=== PATIENT | female | born 1990 | race Two or more races ===

== ENCOUNTER 2023-10-07 15:22 | Emergency (ER) | payer MEDICAID ==
[~2023-10-07] VITALS: Ht 160 cm; Wt 70.5 kg
[2023-10-07 15:23] VITALS: TEMP 98.2
[2023-10-07 15:44] LABS: APPEARANCE,URINE CLEAR (CLEAR); BILIRUBIN,URINE NEGATIVE (NEGATIVE); COLOR,URINE YELLOW (YELLOW); GLUCOSE, URINE (UA) NEGATIVE (NEGATIVE); KETONES,URINE NEGATIVE (NEGATIVE); LEUKOCYTE ESTERASE ,URINE SMALL (NEGATIVE); NITRATE,URINE NEGATIVE (NEGATIVE); OCCULT BLOOD,URINE MODERATE (NEGATIVE); PROTEIN,URINE 100-200,SEE CONFIRM mg/dL (NEGATIVE); SPECIFIC GRAVITIY, URINE 1.034 (1.003-1.030); UROBILINOGEN,URINE <=1.0 mg/dL (<=1.0)
[2023-10-07 15:56] LABS: BASOPHILS % (AUTO) 0.6 % (0.0-2.0); EOSINOPHILS % (AUTO) 6.4 % (1.0-6.0); HEMATOCRIT 31.6 % (36-46); HEMOGLOBIN 10.2 g/dL (12.0-16.0); LYMPHOCYTES # (AUTO) 2.9 K/uL (1.0-4.8); LYMPHOCYTES % (AUTO) 35.6 % (22.0-44.0); MEAN CORPUSCULAR HGB CONC 32.3 G/dL (31.0-37.0); MEAN CORPUSCULAR VOLUME 87 fL (80-100); MONOCYTES # (AUTO) 0.8 K/uL (0.1-1.0); MONOCYTES % (AUTO) 9.2 % (2.0-9.0); NEUTROPHILS % (AUTO) 48.2 % (40.0-70.0); PLATELET COUNT (AUTO) 474 K/uL (150-450); RED BLOOD CELL COUNT(AUTO) 3.64 MIL/uL (4.00-5.20); RED CELL DISTRIBUTION WIDTH 14.5 % (11.5-14.5); WHITE BLOOD COUNT (AUTO) 8.2 K/uL (4.5-11.0)
[2023-10-07 16:04] LABS: ANION GAP 10 mmol/L (8-16); CALCIUM, TOTAL 8.7 mg/dL (8.8-10.5); CARBON DIOXIDE 25 mmol/L (22-29); CHLORIDE 106 mmol/L (98-107); CREATININE 0.75 mg/dL (0.60-1.30); GLOMERULAR FILTR. RATE CALC > 60 mL/min (>60); GLUCOSE,RANDOM 94 mg/dL (70-110); POTASSIUM 4.1 mmol/L (3.5-5.1); SODIUM SERUM 141 mmol/L (136-145); UREA NITROGEN, BLOOD 7 mg/dL (7-18)
[2023-10-07 16:10] LABS: SULFOSALICYLIC ACID,URINE 3+ (Negative)
[2023-10-07 16:10] LABS: ALANINE AMINOTRANSFERASE 50 U/L (12-78); ALBUMIN 3.2 g/dL (3.4-5.0); ALKALINE PHOSPHATASE 102 U/L (46-116); ASPARTATE AMINOTRANSFERASE 33 U/L (15-37); BILIRUBIN,TOTAL 0.1 mg/dL (0.1-1.0); TOTAL PROTEIN, SERUM 7.4 g/dL (6.4-8.2)
[2023-10-07 16:13] LABS: BACTERIA,URINE Few /HPF (None Seen)
[2023-10-07 16:23] LABS: HCG,QUAL URINE NEGATIVE (NEGATIVE)
[2023-10-07] MEDS: SODIUM CHLORIDE 0.9% 1,000 ML IV ONE (16:49)
[2023-10-07] MEDS: ONDANSETRON HCL 4 MG/2 ML VIAL IVP ONE (16:50)
[2023-10-07] MEDS: HYDROmorphone HCL 2 MG/ML SYRINGE IVP ONE (17:49)
[2023-10-07 19:33] VITALS: BP 122/67; PULSE 83; RESP 17
[2023-10-07] MEDS ORDERED: CEPH-558 PO (19:44)
[2023-10-07] MEDS ORDERED: IBUP-1554 PO (19:44)
[2023-10-07] MEDS ORDERED: ONDA-104 PO (19:44)
[2023-10-07] MEDS ORDERED: HYDR-4723 PO (19:44)
[2023-10-07] MEDS: HYDROCODONE/ACETAMINOPHEN 5-325 MG TABLET PO ONE (20:16)
[2023-10-08] MEDS ORDERED: [UNRECOGNIZED DRUG - CODE] PO (23:36)
== END 2023-10-07 21:19 | disposition home or self-care (01) ==
LOC: EMS 15:22
DX: N20.9 Urinary calculus, unspecified (principal); J45.909 Unspecified asthma, uncomplicated; F31.9 Bipolar disorder, unspecified; M79.7 Fibromyalgia; G89.29 Other chronic pain; Z87.442 Personal history of urinary calculi; Z88.2 Allergy status to sulfonamides; Z88.8 Allergy status to other drugs, medicaments and biological substances
CPT/HCPCS: 99285; 74176; 96374; 96361; 96375; 80053; 81001; 84703; 85025; 36415; J1170; J2405; J7030; 81002

== ENCOUNTER 2023-10-08 15:52 | Emergency (ER) | payer MEDICAID ==
[~2023-10-08] VITALS: Ht 160 cm; Wt 84.1 kg
[~2023-10-08 15:52] MED LIST: CEPH-558 PO; HYDR-4723 PO; IBUP-1554 PO; ONDA-104 PO
[2023-10-08 15:56] VITALS: TEMP 97.8
[2023-10-08] MEDS: SODIUM CHLORIDE 0.9% 1,000 ML IV ONE (19:16)
[2023-10-08] MEDS: HYDROmorphone HCL 2 MG/ML SYRINGE IVP ONE (19:17)
[2023-10-08] MEDS: METOCLOPRAMIDE HCL 5 MG/ML 2 ML VIAL IVP ONE (19:34)
[2023-10-08 20:25] VITALS: BP 121/70; PULSE 106; RESP 18
[2023-10-08 21:01] LABS: BASOPHILS % (AUTO) 0.4 % (0.0-2.0); EOSINOPHILS % (AUTO) 3.1 % (1.0-6.0); HEMATOCRIT 22.9 % (36-46); HEMOGLOBIN 7.3 g/dL (12.0-16.0); LYMPHOCYTES # (AUTO) 2.1 K/uL (1.0-4.8); LYMPHOCYTES % (AUTO) 16.8 % (22.0-44.0); MEAN CORPUSCULAR HEMOGLOBIN 28.1 pg (26.0-34.0); MEAN CORPUSCULAR HGB CONC 31.9 G/dL (31.0-37.0); MEAN CORPUSCULAR VOLUME 88 fL (80-100); MONOCYTES # (AUTO) 0.8 K/uL (0.1-1.0); MONOCYTES % (AUTO) 6.6 % (2.0-9.0); NEUTROPHILS % (AUTO) 73.1 % (40.0-70.0); PLATELET COUNT (AUTO) 343 K/uL (150-450); RED CELL DISTRIBUTION WIDTH 14.5 % (11.5-14.5); WHITE BLOOD COUNT (AUTO) 12.4 K/uL (4.5-11.0)
[2023-10-08 21:09] LABS: ANION GAP 9 mmol/L (8-16); CALCIUM, TOTAL 8.2 mg/dL (8.8-10.5); CARBON DIOXIDE 26 mmol/L (22-29); CHLORIDE 106 mmol/L (98-107); CREATININE 0.65 mg/dL (0.60-1.30); GLOMERULAR FILTR. RATE CALC > 60 mL/min (>60); GLUCOSE,RANDOM 104 mg/dL (70-110); SODIUM SERUM 141 mmol/L (136-145); UREA NITROGEN, BLOOD 10 mg/dL (7-18)
[2023-10-08 21:23] LABS: ALANINE AMINOTRANSFERASE 92 U/L (12-78); ALBUMIN 2.6 g/dL (3.4-5.0); ALKALINE PHOSPHATASE 116 U/L (46-116); ASPARTATE AMINOTRANSFERASE 134 U/L (15-37); BILIRUBIN,TOTAL 0.2 mg/dL (0.1-1.0); HCG,QUANTITATIVE < 1 mIU/mL (0-6); LIPASE 28 U/L (16-77); TOTAL PROTEIN, SERUM 5.9 g/dL (6.4-8.2)
[2023-10-08 21:26] LABS: APPEARANCE,URINE HAZY (CLEAR); BILIRUBIN,URINE NEGATIVE (NEGATIVE); COLOR,URINE YELLOW (YELLOW); GLUCOSE, URINE (UA) NEGATIVE (NEGATIVE); KETONES,URINE NEGATIVE (NEGATIVE); LEUKOCYTE ESTERASE ,URINE TRACE (NEGATIVE); NITRATE,URINE NEGATIVE (NEGATIVE); OCCULT BLOOD,URINE NEGATIVE (NEGATIVE); PROTEIN,URINE 30-70 mg/dL (NEGATIVE); UROBILINOGEN,URINE <=1.0 mg/dL (<=1.0)
[2023-10-08 21:30] LABS: RBC,URINE 0-2 /HPF (0-2)
[2023-10-08 21:32] LABS: BACTERIA,URINE Moderate /HPF (None Seen)
[2023-10-08] MEDS ORDERED: HYDROmorphone HCL 2 MG/ML SYRINGE IM ONE (23:30)
[2023-10-08] MEDS ORDERED: [UNRECOGNIZED DRUG - CODE] PO (23:36)
== END 2023-10-08 23:00 | disposition home or self-care (01) ==
LOC: EMS 16:01
DX: N20.9 Urinary calculus, unspecified (principal); N39.0 Urinary tract infection, site not specified; J45.909 Unspecified asthma, uncomplicated; F31.9 Bipolar disorder, unspecified; G89.29 Other chronic pain; Z88.2 Allergy status to sulfonamides; Z91.040 Latex allergy status; Z88.8 Allergy status to other drugs, medicaments and biological substances
CPT/HCPCS: 99284; 96374; 96361; 96375; 80053; 81001; 83690; 84702; 85025; 36415; 87086; 87186; J1170; J2765; J7030